=== PATIENT | female | born 1960 | race Caucasian/White ===

== ENCOUNTER 2021-09-18 14:03 | Emergency (ER) | payer MEDICAID ==
[~2021-09-18] VITALS: Ht 160 cm; Wt 116.1 kg
[2021-09-18 14:22] VITALS: BP_SYST 139
--- NOTE | 2021-09-18 14:25 | NUR ---
Triaged pt and placed in waiting room until bed becomes available. Pt c/o left flank pain x4 days. No trauma. Intermittent 12/09. Pt is A&Ox4. Skin intact. VSS. NKA. Has hx of Asthma. Coming from home ambulatory with steady gait accompanied by .
--- NOTE | 2021-09-18 15:20 | NUR ---
PT IS NOT IN WAITING ROOM OR IN FRONT OF HOSPITAL, CALLED FOR BED ASSIGNMENT.
--- NOTE | 2021-09-18 15:35 | NUR ---
UNABLE TO LOCATE PT IN WAITING ROOM.
--- NOTE | 2021-09-18 15:45 | NUR ---
UNABLE TO LOCATE PT IN WAITING ROOM. PT IS LWBS
== END 2021-09-18 15:45 | disposition left against medical advice (07) ==
LOC: SED 14:03
DX: R10.9 Unspecified abdominal pain (principal); Z53.21 Procedure and treatment not carried out due to patient leaving prior to being seen by health care provider

== ENCOUNTER → 2021-09-18 | Emergency (ER) | payer MEDICAID ==
[~2021-09-18] VITALS: Ht 160 cm; Wt 116.1 kg
[2021-09-18 20:11] VITALS: BP_SYST 121
[2021-09-18 21:56] LABS: BASOPHILS % (AUTO) 0.6 % (0.0-2.0); EOSINOPHILS # (AUTO) 0.9 K/uL (0.0-0.4); EOSINOPHILS % (AUTO) 10.8 % (0.0-4.0); HEMATOCRIT 35.5 % (36-48); HEMOGLOBIN 12.2 g/dL (12.0-16.0); LYMPHOCYTES # (AUTO) 2.2 K/uL (1.0-5.5); LYMPHOCYTES % (AUTO) 26.2 % (20.5-51.5); MEAN CORPUSCULAR HEMOGLOBIN 31 pg (27-31); MEAN CORPUSCULAR HGB CONC 35 % (32-36); MEAN CORPUSCULAR VOLUME 91 fL (79.0-98.0); MONOCYTES # (AUTO) 0.6 K/uL (0.0-1.0); MONOCYTES % (AUTO) 7.3 % (1.7-9.3); NEUTROPHILS # (AUTO) 4.5 K/uL (1.8-7.7); NEUTROPHILS % (AUTO) 55.1 % (40.0-70.0); PLATELET COUNT (AUTO) 214 K/uL (130-430); RED BLOOD CELL COUNT(AUTO) 3.92 MIL/uL (4.2-6.2); RED CELL DISTRIBUTION WIDTH 13.2 % (9.0-15.0); WHITE BLOOD COUNT (AUTO) 8.2 K/uL (4.8-10.8)
[2021-09-18 22:13] LABS: BILIRUBIN,URINE NEGATIVE (NEGATIVE); CLARITY/URINE CLEAR (CLEAR); COLOR,URINE YELLOW (YELLOW); GLUCOSE,URINE NEGATIVE (NEGATIVE); KETONES,URINE TRACE (NEGATIVE); LEUKOCYTE ESTERASE ,URINE NEGATIVE (NEGATIVE); NITRITE, URINE NEGATIVE (NEGATIVE); PH,URINE 6.5 (5.0-8.0); PROTEIN URINE NEGATIVE (NEGATIVE); UROBILINOGEN,URINE 0.2 (0.2-1.0)
[2021-09-18 22:46] LABS: ALBUMIN 3.5 g/dL (3.4-4.8); CALCIUM 8.7 mg/dL (8.4-11.0); CREATININE 0.71 mg/dL (0.55-1.30); TOTAL BILIRUBIN 0.4 mg/dL (0.0-1.0)
[2021-09-18 23:32] LABS: POTASSIUM 4.2 mmol/L (3.5-5.1)
[2021-09-18 23:56] LABS: BLOOD, URINE TRACE (NEGATIVE)
[2021-09-19 00:12] LABS: BACTERIA,URINE FEW /HPF (None Seen); MUCUS,URINE None Seen /LPF (None Seen); RBC,URINE 0-3 /HPF (0-3); WBC,URINE 0-3 /HPF (0-3)
== END | disposition home or self-care (01) ==
LOC: SED 18:14
DX: R10.12 Left upper quadrant pain (principal); R11.0 Nausea; Z79.899 Other long term (current) drug therapy
CPT/HCPCS: 36415; 80053; 81000; 83690; 84484; 85025; 93005; 99284

== ENCOUNTER 2022-04-26 22:52 | Inpatient (IN) | payer MEDICAID ==
[~2022-04-26] VITALS: Ht 160 cm; Wt 114.3 kg
[2022-04-26 22:52] VITALS: BP_SYST 125
--- NOTE | 2022-04-26 22:52 | NUR ---
Patient triaged and placed in ER bed 3 for evaluation. Vital signs updated, denied any acute respiratory distress at this time. Report given to FAIZA Beverly for continuity of care. Instructed to notify ED staff for any changes in condition or worsening of symptoms. Patient verbalized understanding.
--- NOTE | 2022-04-26 23:09 | NUR ---
Dr. Escudero at bedside examining the patient.
--- NOTE | 2022-04-26 23:10 | NUR ---
PT BIB BLS FROM HOME C/O INTERMITTENT CP X2 WEEKS, +VOMITING BLOOD X2 TODAY. PT REPORTS BEING TREATED FOR LEFT EAR INFECTION WITH BACTRIM. PT ALSO REPORTS TAKING 1200MG OF MOTRIN Q6 FOR THE CHEST PAIN. PT DENIES ABDOMINAL PAIN.
[2022-04-26] MEDS ORDERED: MAG HYDROX/AL HYDROX/SIMETH 30 ML, DICYCLOMINE HCL 20 MG, LIDOCAINE VISCOUS 2% 15ML (PO... PO ONE ×3 (23:15)
--- NOTE | 2022-04-26 23:22 | NUR ---
Portable x-ray done at bedside.
--- NOTE | 2022-04-26 23:35 | NUR ---
PT C/O NAUSEA. DR. CONCEPCION NOTIFIED
[2022-04-26] MEDS ORDERED: ONDANSETRON HCL 4 MG/2 ML VIAL ONE (23:39)
[2022-04-26 23:40] LABS: BASOPHILS % (AUTO) 0.5 % (0.0-2.0); EOSINOPHILS # (AUTO) 0.5 K/uL (0.0-0.4); EOSINOPHILS % (AUTO) 5.8 % (0.0-4.0); HEMATOCRIT 33.8 % (36-48); HEMOGLOBIN 11.5 g/dL (12.0-16.0); LYMPHOCYTES # (AUTO) 2.1 K/uL (1.0-5.5); LYMPHOCYTES % (AUTO) 22.3 % (20.5-51.5); MEAN CORPUSCULAR HEMOGLOBIN 31 pg (27-31); MEAN CORPUSCULAR HGB CONC 34 % (32-36); MEAN CORPUSCULAR VOLUME 92 fL (79.0-98.0); MONOCYTES # (AUTO) 0.7 K/uL (0.0-1.0); MONOCYTES % (AUTO) 7.7 % (1.7-9.3); NEUTROPHILS % (AUTO) 63.7 % (40.0-70.0); PLATELET COUNT (AUTO) 226 K/uL (130-430); RED BLOOD CELL COUNT(AUTO) 3.67 MIL/uL (4.2-6.2); RED CELL DISTRIBUTION WIDTH 12.9 % (9.0-15.0); WHITE BLOOD COUNT (AUTO) 9.5 K/uL (4.8-10.8)
[2022-04-26] MEDS ORDERED: ONDANSETRON HCL 4 MG/2 ML VIAL IVP ONE (23:45)
[2022-04-26 23:56] LABS: ANION GAP 9 (5-15); CALCIUM 8.8 mg/dL (8.4-11.0); CHLORIDE 105 mmol/L (98-107); CREATININE 0.67 mg/dL (0.55-1.30); GLUCOSE 119 mg/dL (70-99); UREA NITROGEN, BLOOD 10 mg/dL (8-21)
[2022-04-27 00:03] LABS: ALANINE AMINOTRANSFERASE 21 U/L (12-78); ALBUMIN 3.3 g/dL (3.4-4.8); ASPARTATE AMINOTRANSFERASE 13 U/L (10-37); TOTAL BILIRUBIN 0.6 mg/dL (0.0-1.0)
[2022-04-27 00:05] LABS: GFR AFRICAN AMERICAN 115 mL/min (>90)
[2022-04-27] MEDS ORDERED: PROCHLORPERAZINE EDISYLATE 10 MG/2 ML VIAL IVP ONE (01:30)
[2022-04-27] MEDS ORDERED: MORPHINE 4 MG INJ. 4 MG/ML VIAL IVP ONE ×2 (01:30→07:15)
[2022-04-27] MEDS ORDERED: PANTOPRAZOLE SODIUM 40 MG/VIAL (PROTONIX) IVP ONE ×2 (01:45→06:15)
--- NOTE | 2022-04-27 02:05 | NUR ---
Patient resting quietly. No acute distress noted. VSS
--- NOTE | 2022-04-27 04:00 | NUR ---
Patient resting quietly. No acute distress noted. VSS.
--- NOTE | 2022-04-27 06:06 | NUR ---
Admit bed requested Patient will be admitted to care of Dr. HAYNES. Admitted to TELE unit. Diagnosis CHEST PAIN, GIB Inpatient (Yes or No) YES Observation (Yes or No) NO Orientation concerns or request close to nursing station (Yes or No) NO Covid Status NEGATIVE On vent or bipap NO Isolation requirements NO Needs a sitter NO From Home (Yes or if No enter name of facility) YES Requires Dialysis (Yes or No) NO Med Rec Completed (Yes of No) PENDING
[2022-04-27] MEDS ORDERED: PANTOPRAZOLE SODIUM 40 MG in NS 50 ML IV SCH (06:15)
[2022-04-27] MEDS ORDERED: NACL 0.9% 1,000 ML IV SCH (06:15)
--- NOTE | 2022-04-27 06:33 | NUR ---
REPORT GIVEN TO NISH KENDALL AT [facility] #[phone]. PT WILL BE GOING TO ROOM 742-[address] SARAVIA.
--- NOTE | 2022-04-27 06:34 | NUR ---
NOTIFIED DR. HAYNES PT IS BEING TRANSFERRED DUE TO INSURANCE ALS ETA 0715 WITH [employer]
--- NOTE | 2022-04-27 07:04 | NUR ---
REPORT GIVEN TO FLOR KENDALL
--- NOTE | 2022-04-27 07:15 | NUR ---
REPORT GIVEN TO ANANT KNIGHT RN.
[2022-04-27 07:16] VITALS: BP_SYST 107
--- NOTE | 2022-04-27 07:31 | NUR ---
CONSULTATION PAGED REASON FOR CONSULTATION:CHEST PAIN WAS CONSULT CALLED? Y PERSON WHO WAS NOTIFIED: VADIM CONSULTING PHYSICIAN: AIDE BRUNSON MEDICAL OFFICE TECHNICIAN SPECIALTY: CARDIO MEDICAL OFFICE TECHNICIAN PHONE NUMBER: [phone] REQUESTING PHYSICIAN: KARYNA CLEMENTE
--- NOTE | 2022-04-27 07:34 | NUR ---
CONSULTATION PAGED REASON FOR CONSULTATION: GIB, HEMATEMESIS WAS CONSULT CALLED? Y PERSON WHO WAS NOTIFIED: CECILE CONSULTING PHYSICIAN: RETA ORTIZ [address] ON [place];;0 ANESTHESIOLOGY TECH SPECIALTY: GI ANESTHESIOLOGY TECH PHONE NUMBER: [phone] REQUESTING PHYSICIAN: HAM CLEMENTE
== END 2022-04-27 09:47 | disposition short-term general hospital (02) | DRG 203 ==
LOC: SED 22:52 → STU 04-27 06:01
PROVIDERS: ADMIT Internal Medicine; ATTEND Internal Medicine
DX: R07.9 Chest pain, unspecified (principal); K92.2 Gastrointestinal hemorrhage, unspecified; K21.9 Gastro-esophageal reflux disease without esophagitis; Z20.822 Contact with and (suspected) exposure to COVID-19
CPT/HCPCS: 36415; 71045; 80053; 83880; 84484; 85025; 86886; 86900; 86901; 93005; 96374; 99285; C9113; G0378; J0780; J2001; J2270; J2405